=== PATIENT | female | born 1985 | race Caucasian/White ===

== ENCOUNTER → 2017-09-01 | Outpatient (REF) ==
[~2017-09-01] MED LIST: LEXAPRO 10MG10 MG PO; MOTRIN 600600 MG/TAB PO; NEXIUM 20MG20 MG PO; PERCOCET 325 MG1 TA2 PO; PERCOCET 325 MG1 TA3 PO; PRENATAL1 TA1 PO; TYLENOL PM EXTR1 TA1 PO
[2017-09-01 15:40] LABS: BASO # 0.1 (0.0-0.2); BASO % 0.9 % (0.0-2.0); EOS # 0.3 (0.0-0.7); EOS % 4.1 % (0-4.0); GRAN # 4.3 (1.4-6.5); GRAN % 53.7 % (42.2-75.2); HEMATOCRIT 37.3 % (37.0-47.0); HEMOGLOBIN 12.3 g/dl (12.5-16.0); LYMPH # 2.7 (1.2-3.4); MEAN CELL VOLUME 83 fl (80.0-100.0); MEAN CORPUSCULAR HEMOGLOBIN 27 pg (27.0-31.0); MEAN CORPUSCULAR HGB CONC 33 g/dl (33.0-37.0); MEAN PLATELET VOLUME 10.2 fl (7.4-10.4); MONO # 0.6 (0.1-0.6); MONO % 6.9 % (1.7-9.3); PLATELET COUNT 324 K/mm3 (130-400); RED BLOOD COUNT 4.52 M/mm3 (4.10-5.30); REDCELL DISTRIBUTION WIDTH-CV 13.2 % (11.5-14.5)
== END ==
LOC: ZMSC 15:29
PROVIDERS: Obstetrics & Gynecology
DX: Z01.89 Encounter for other specified special examinations (principal)

== ENCOUNTER 2019-08-11 20:12 | Outpatient (CLI) | payer OTHER ==
[~2019-08-11] VITALS: Ht 157.5 cm; Wt 87.7 kg
--- NOTE | 2019-08-11 19:55 | NUR ---
Pt arrived on unit ambulatory and with complaints of contractions every 10 mins. Pt denies any leaking of fluid, vaginal bleeding and reports normal movement. EFM and toco monitors started. Vital signs WNL. SVE by this RN /3 with negative amnio-trace. Spoke with Dr. Diaz. FHR tracing reviewed. Orders for labor assessment, oral hydration and UA received. Plan of care reviewed with pt and at the bedside.
[2019-08-11 20:18] VITALS: BP 114/70; PULSE 110; TEMP 98.1
[2019-08-11] MEDS ORDERED: TYLENOL PM EXTR1 TA1 PO (20:29)
[2019-08-11] MEDS ORDERED: CLARITIN 1010 MG/TAB PO (20:31)
[2019-08-11] MEDS ORDERED: NATURAL IRON65 MG (20:31)
--- NOTE | 2019-08-11 21:45 | NUR ---
SVE by this RN with no change. Pt reports feeling better and reports decrease in contractions. Information reviewed with Dr. Diaz. Orders for discharge home received. Plan of care reviewed with pt and at the bedside. Both verbalized an understanding, agreed with the plan and states no questions at this time.
[2019-08-11 21:46] LABS: COLLECTION METHOD CLEAN CATCH
[2019-08-11 21:52] LABS: MUCOUS Present /lpf; PH 6 (5-8); SQUAMOUS EPITHELIAL 0-2 /hpf; URINE APPEARANCE Clear; URINE BACTERIA Rare /hpf; URINE BILIRUBIN Negative (NEGATIVE); URINE BLOOD Negative (NEGATIVE); URINE COLOR Yellow; URINE GLUCOSE Negative (NEGATIVE); URINE KETONE Trace (NEGATIVE); URINE LEUKOCYTE ESTERASE Negative (NEGATIVE); URINE NITRATE Negative (NEGATIVE); URINE PROTEIN(semi-quant) Negative (NEGATIVE); URINE RBC 0-2 /hpf; URINE UROBILINOGEN Negative (NEGATIVE); URINE WBC 0-2 /hpf
== END 2019-08-11 21:55 | disposition home or self-care (01) ==
LOC: LDRO 20:12
PROVIDERS: Obstetrics & Gynecology
DX: O62.9 Abnormality of forces of labor, unspecified (principal); Z3A.33 33 weeks gestation of pregnancy

== ENCOUNTER 2019-09-13 20:38 | Outpatient (CLI) | payer OTHER ==
[~2019-09-13] VITALS: Ht 157.5 cm; Wt 90.5 kg
[~2019-09-13 20:38] MED LIST changes: +CLARITIN 1010 MG/TAB PO; +NATURAL IRON65 MG
[2019-09-13 20:50] VITALS: BP 137/81; PULSE 88; TEMP 98.6
[2019-09-13 21:02] VITALS: TEMP 98.6
[2019-09-13 21:20] VITALS: BP 132/80; PULSE 89
[2019-09-13 21:50] VITALS: BP 134/72; PULSE 84
== END 2019-09-13 22:10 | disposition home or self-care (01) ==
LOC: LDRO 20:38
DX: O62.9 Abnormality of forces of labor, unspecified (principal); Z3A.37 37 weeks gestation of pregnancy

== ENCOUNTER 2019-09-15 12:06 | Inpatient (IN) | payer OTHER ==
[~2019-09-15] VITALS: Ht 157.6 cm; Wt 90.9 kg
[2019-09-15] VITALS (16 sets, daily range): BP systolic 117–133; BP diastolic 66–80; PULSE 79–96; TEMP 97.5–98.3
--- NOTE | 2019-09-15 12:30 | NUR ---
Pt arrives ambulatory to unit for planned repeat . Pt oriented to room, changed into gown. EFM explained and placed, IV started in LH, labs drawn, LR started. Pt states she had been sent over from office, states she has been beatriz for a week and is now dilating. Reports good movement, denies leaking of fluid or vaginal bleeding. Consents discussed and signed. Pubic area clipped, chlorahexadine prep done.
[2019-09-15 13:18] LABS: BASO % 0.3 % (0.0-2.0); EOS # 0.2 (0.0-0.7); EOS % 1.8 % (0-4.0); GRAN # 6.7 (1.4-6.5); GRAN % 74.6 % (42.2-75.2); HEMOGLOBIN 11.3 g/dl (12.5-16.0); LYMPH # 1.5 (1.2-3.4); LYMPH % 16.3 % (20.0-51.0); MEAN CELL VOLUME 81 fl (80.0-100.0); MEAN CORPUSCULAR HEMOGLOBIN 27 pg (27.0-31.0); MEAN CORPUSCULAR HGB CONC 33 g/dl (33.0-37.0); MEAN PLATELET VOLUME 10.4 fl (7.4-10.4); MONO # 0.6 (0.1-0.6); MONO % 6.3 % (1.7-9.3); PLATELET COUNT 251 K/mm3 (130-400); RED BLOOD COUNT 4.18 M/mm3 (4.10-5.30); REDCELL DISTRIBUTION WIDTH-CV 13.7 % (11.5-14.5)
[2019-09-15] MEDS ORDERED: LEXAPRO20 MG PO (14:45)
[2019-09-15] MEDS ORDERED: LEXAPRO 10MG10 MG PO (14:45)
[2019-09-15] MEDS ORDERED: NEXIUM 20MG20 MG PO (14:47)
[2019-09-15] MEDS ORDERED: PERCOCET 325 MG1 TA2 PO (14:47)
[2019-09-16 00:15] VITALS: BP 119/66; PULSE 71; TEMP 98
--- NOTE | 2019-09-16 01:15 | NUR ---
0115-PT ASSISTED TO BR AND UNABLE TO VOID AFTER APPROX 10MIN OF ATTEMPTING. PERICARE PERFORMED BY RN AND PT ASSISTED BACK TO BED. FF AND DOWN 2 AND SCANT LOCHIA NOTED ON PAD. BLADDER NOT DISTENDED AT THIS TIME.
[2019-09-16 07:05] VITALS: BP 115/65; PULSE 76; TEMP 98.1
[2019-09-16] MEDS ORDERED: PERCOCET 325 MG1 TA2 PO (08:54)
[2019-09-16] MEDS ORDERED: IBU600 MG PO (08:54)
--- NOTE | 2019-09-16 09:43 | NUR ---
Initial visit; Parents thanked Logging Equipment Operator for offering congratulations and God's blessings for the of their son. Logging Equipment Operator thanked family for choosing [facility].
--- NOTE | 2019-09-16 15:33 | NUR ---
Applications Processor responded to consult as patient reports she took Percocet during . SW met with patient and patient's , Dylon Ghosh (ph#[phone]) to review supports and to assess for needs. Patient states she has three other girls at home and Dylon's mother lives with them as well. Patient reports that Dylon's mother is currently home with the girls. 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 Patient reports she has all the supplies she needs at home and denies any concerns about returning home. Patient states they have a lot of friends and support from people in their anabaptist. SW asked patient if she has been set up with WIC and she advised they have not qualified for WIC in the past but may qualify now. SW offered to call [facility] for patient and she declines stating she can do this. Patient reports a history of anxiety and depression but declines being set up with any mental health services. Patient reports she takes medications for this and that her primary care physician, Therese Cintron, Nurse Practitioner at [facility] prescribes those. SW asked patient about use of Percocet during . Patient states she used it twice and it was prescribed by Therese Cintron. SENG contacted MEGAN Cid at [facility] who confirmed it was prescribed by Therese Cintron and that the prescription was last filled in September 2018. Palak advised that carlos manuel was last seen in March. SENG collaborated with Dr. Walker and RN, [facility]. No additional needs at this time.
[2019-09-16 16:59] VITALS: BP 118/64; PULSE 76; TEMP 97.8
[2019-09-16 19:45] VITALS: BP 122/72; PULSE 79; TEMP 98.3
[2019-09-17 08:15] VITALS: BP 129/72; PULSE 82; TEMP 98
[2019-09-17 15:39] VITALS: BP 125/66; PULSE 91; TEMP 98
[2019-09-17 19:00] VITALS: BP 127/80; PULSE 79; TEMP 98.1
[2019-09-18 08:30] VITALS: BP 130/69; PULSE 92; TEMP 97.8
--- NOTE | 2019-09-20 08:48 | NUR ---
The baby's cord blood came back negative.
== END 2019-09-18 14:20 | disposition home or self-care (01) | DRG 788 ==
LOC: OB 12:06
PROVIDERS: ADMIT Obstetrics & Gynecology
PROC: 10D00Z1 Extraction of Products of Conception, Low, Open Approach (ICD-10-PCS; principal; 2019-09-15)
DX: O34.219 Maternal care for unspecified type scar from previous cesarean delivery (principal); O99.52 Diseases of the respiratory system complicating childbirth; J45.909 Unspecified asthma, uncomplicated; O99.62 Diseases of the digestive system complicating childbirth; K21.9 Gastro-esophageal reflux disease without esophagitis; Z3A.38 38 weeks gestation of pregnancy; Z37.0 Single live birth; O99.02 Anemia complicating childbirth; D64.89 Other specified anemias; O99.344 Other mental disorders complicating childbirth; F32.9 Major depressive disorder, single episode, unspecified
CPT/HCPCS: J0690; J1885; J2250; J2270; J2370; J2405; J2590; J7120